=== PATIENT | female | born 1990 | race Caucasian/White ===

== ENCOUNTER 2023-03-11 17:33 | Emergency (ER) | payer OTHER, SELFPAY ==
[2023-03-11 17:39] VITALS: BP 111/82; PULSE 99; RESP 18; TEMP 36.9; O2SAT 98; BMI 32.2
--- NOTE | 2023-03-11 17:57 | ED.GENADULT ---
HPI - General Adult General Time Seen by Provider: 17:57 Date Seen: 03/11/23 Chief complaint: Allergic Reaction Stated complaint: Unknown Allergic Reaction Time Seen by Provider: 03/11/23 17:46 Source: patient and family Mode of arrival: ambulatory Limitations: no limitations History of Present Illness HPI narrative: Chanell is a 32-year-old female with no past medical history or allergies presents emerged department with with a allergic reaction. Patient does run a daycare, around 4:00 a.m. this afternoon she was outside feeding and , which she felt warm and flushed, this started on her face and neck area and radiate to her arms, she became more itchy and developed a rash. She was wearing a sweater. There was some involvement of her underwear area. She medially took some Benadryl just after 4:00 p.m. 25 mg. She denied any difficulty with breathing or swallowing, she did not feel like her throat was swelling up. No history of any allergies, no changes in foods, medications, creams, detergents, she is unsure if she did not get bit by something outside. She denies any pain. She did have some tingling in her cheeks during the episode which has resolved. There has not been any improvement after the Benadryl. Related Data Previous Rx's Medication Instructions Recorded prednisone 20 mg tablet 40 mg PO DAILY 5 days #10 tabs 03/11/23 Allergies Allergy/AdvReac Type Severity Reaction Status Date / Time No Known Drug Allergies Allergy Verified 03/11/23 17:38 Review of Systems Status of ROS: Reports: 10 or more systems reviewed and unremarkable except as noted in History and below [facility] Social History Smoking Status: Never smoker Do you use any of these nicotine containing products: None Second hand tobacco smoke exposure: No How often do you have a drink containing alcohol: 2-4 times a month How many standard drinks containing alcohol do you have on a typical day: 3 or 4 How often do you have six or more drinks on one occasion: Less than monthly AUDIT-C Alcohol total score: 4 Non-prescribed substance use: denies use service: No Exam Narrative: Exam Narrative: General: No obvious distress sitting comfortably, nontoxic in appearance HEENT: Tympanic membranes within normal limits bilaterally oropharynx is clear and moist Pupils equal round reactive to light, extraocular muscles intact Neck: No adenopathy, supple full range of motion Lungs: No stridor, no wheezes, clear to auscultation Heart: Normal sinus rhythm S1-S2 Abdomen: Soft nontender Skin: Generalize find blanching erythemic macular papular rash the upper back, upper chest and upper extremities, involving the anterior neck, frontal scalp cheeks bilaterally and chin area. Also involvement of the upper chest area. Neuro: Alert awake and oriented x3 Const: Vital Signs, click to edit/add: Vital Signs - 24 hr 03/11/23 17:39 03/11/23 19:49 Temperature 98.5 F Pulse Rate [Pulse Oximeter] 99 75 Respiratory Rate 18 18 Blood Pressure [Le ft Upper Arm] 111/82 107/90 H Pulse Oximetry 98 99 Oxygen Delivery Me thod Room Air Room Air Course Course Hospital Course: 6:00 PM: AIDET, vitals are stable at this time, no airway compromise, workup will include IV peripheral, 125 mg IV Solu-Medrol, 20 mg IV Pepcid and 25 mg IV Benadryl, unclear on the etiology at this time. Patient was in agreement. Differential diagnosis include but not limited to seasonal allergies, contact dermatitis, Urticaria, viral exanthem, medication side effects, food allergies, as well as life-threatening anaphylaxis. Reevaluation(s) Reevaluation #1: 7:30 PM: Patient is feeling better after above care given, patient's rash has resolved, plan would be to discharge, unclear on the etiology at this time, will send prescription for prednisone 40 mg once daily over the next 5 days to have at home, if any recurrence, she can take that with 50 mg oral Benadryl every 4-6 hours, Pepcid 20 mg twice daily, she should follow up with primary care provider over the next 7-10 days, return precautions given. Vital Signs Vital signs: Initial Vital Signs Temperature 98.5 F 03/11/23 17:39 Temperature Source Temporal Artery Scan 03/11/23 17:39 Pulse Rate 99 03/11/23 17:39 Pulse Rhythm Regular 03/11/23 17:39 Respiratory Rate 18 03/11/23 17:39 Blood Pressure 111/82 03/11/23 17:39 Blood Pressure Mean 91 03/11/23 17:39 Blood Pressure Position Supine 03/11/23 17:39 Pulse Oximetry 98 04/26/23 17:39 Oxygen Delivery Method Room Air 03/11/23 17:39 Vital Signs Temperature 98.5 F 03/11/23 17:39 Pulse Rate 99 03/11/23 17:39 Respiratory Rate 18 03/11/23 17:39 Blood Pressure 111/82 03/11/23 17:39 Pulse Oximetry 98 03/11/23 17:39 Oxygen Delivery Method Room Air 03/11/23 17:39 Temperature 98.5 F 03/11/23 17:39 Pulse Rate 75 03/11/23 19:49 Respiratory Rate 18 03/11/23 19:49 Blood Pressure 107/90 H 03/11/23 19:49 Pulse Oximetry 99 03/11/23 19:49 Oxygen Delivery Method Room Air 03/11/23 19:49 Discharge Plan Discharge Clinical Impression: Urticaria, Allergic reaction Patient Disposition: Home, Self-Care Condition: Improved Instructions: Urticaria (ED) Additional Instructions: To take Prednisone 40 mg daily with benadryl 50 mg every 6 hours and Pepcid 20 mg twice daily as needed. Activity Level: No Restrictions Prescriptions: New prednisone 20 mg tablet 40 mg PO DAILY 5 Days Qty: 10 0RF Stand Alone Forms: [employer] Info Instructions
[2023-03-11] MEDS: diphenhydrAMINE 50 MG/ML inj 25 MG IVP (18:42)
[2023-03-11] MEDS: FAMOTIDINE 10 MG/ML inj 20 MG IVP (18:42)
[2023-03-11] MEDS: METHYLPREDNISOLONE SOD SUCC 62.5 MG/ML (125) 125 MG IVP (18:43)
[2023-03-11 19:49] VITALS: BP 107/90; PULSE 75; RESP 18; O2SAT 99
== END 2023-03-11 19:51 | disposition home or self-care (01) ==
PROVIDERS: Emergency Provider Student in an Organized Health Care Education/Training Program; PCP Family Medicine
DX: L50.0 Allergic urticaria (principal)
CPT/HCPCS: 96374; 96375; 99283; 99284; J1200; J2930; S0028

== ENCOUNTER 2023-07-28 12:04 | Outpatient (CLI) | payer OTHER, SELFPAY ==
--- NOTE | 2023-07-28 12:15 | CRLHL7_ITS ---
For Patients: As a result of the Century Cures Act, medical imaging exams and procedure reports are released immediately into your electronic medical record. You may view this report before your referring provider. If you have questions, please contact your health care provider. INDICATION: First trimester scan, establish dates. COMPARISON: None. TECHNIQUE: Real-time contreras-scale imaging of the pelvis was performed. FINDINGS: Sonographic imaging demonstrates a single living intrauterine gestation. The embryo demonstrates a regular cardiac rate measuring 178 beats per minute. The embryo`s crown-rump length measurement of 3.0 cm corresponds to a gestational age of 9 weeks 6 days with a sonographic due date of 02/24/2024. There is a normal-appearing yolk sac. There are no gross abnormalities noted within the embryo at this early state of development. The gestational sac has a normal appearance. There is a small perigestational hemorrhage in the fundal region. The amount of fluid within the sac appears appropriate for gestational age. The cervix is closed. An exophytic fibroid may be present at the right side of the lower uterine segment measuring 2.1 x 1.3 x 1.4 cm. The ovaries are of normal size. There are no suspicious fluid collections noted in the cul-de-sac. IMPRESSION: Single living intrauterine with sonographic gestational age 9 weeks 6 days and sonographic due date 02/24/2024. Dictated by Jadon Galaviz MD @ 07/29/2023 1:10:08 PM (Electronically Signed)
== END 2023-07-28 12:05 | disposition home or self-care (01) ==
LOC: US 12:05
PROVIDERS: PCP Family Medicine; Visit Provider Advanced Practice Midwife
DX: Z34.91 Encounter for supervision of normal pregnancy, unspecified, first trimester (principal); Z3A.09 9 weeks gestation of pregnancy
CPT/HCPCS: 76817; 86703; 86803; 86850; 86900; 86901; 87086; 87340

== ENCOUNTER 2023-07-28 13:36 | Outpatient (CLI) | payer OTHER, SELFPAY | END 2023-07-28 13:37 | disposition home or self-care (01) | PROVIDERS: PCP Family Medicine; Visit Provider Advanced Practice Midwife | DX: Z34.91 Encounter for supervision of normal pregnancy, unspecified, first trimester (principal); Z3A.09 9 weeks gestation of pregnancy | CPT/HCPCS: 86592; 86703; 86762; 86787; 86803; 86850; 86900; 86901; 87086; 87340 ==

== ENCOUNTER 2023-08-18 16:33 | Outpatient (CLI) | payer OTHER, SELFPAY | END 2023-08-18 16:34 | disposition home or self-care (01) | LOC: NFLDREF 17:06 | PROVIDERS: PCP Family Medicine; Visit Provider Advanced Practice Midwife | DX: Z34.91 Encounter for supervision of normal pregnancy, unspecified, first trimester (principal); Z3A.12 12 weeks gestation of pregnancy | CPT/HCPCS: 87491; 87591 ==

== ENCOUNTER 2023-09-03 15:06 | Outpatient (CLI) | payer OTHER, SELFPAY ==
[2023-09-03 22:13] LABS: SARS PCR* Negative SARS-CoV-2 (Negative); Strep A DNA Probe* NOT DETECTED (Not Detectd)
== END 2023-09-03 15:07 | disposition home or self-care (01) ==
PROVIDERS: PCP Family Medicine; Visit Provider Nurse Practitioner Family
DX: J11.1 Influenza due to unidentified influenza virus with other respiratory manifestations (principal)
CPT/HCPCS: 87635; 87651

== ENCOUNTER 2023-10-20 14:02 | Outpatient (CLI) | payer OTHER, SELFPAY ==
--- NOTE | 2023-10-20 14:00 | CRLHL7_ITS ---
For Patients: As a result of the Century Cures Act, medical imaging exams and procedure reports are released immediately into your electronic medical record. You may view this report before your referring provider. If you have questions, please contact your health care provider. INDICATION: Evaluate anatomy. COMPARISON: 07/28/2023 TECHNIQUE: Real time contreras scale imaging of the fetus was performed as well as color Doppler analysis of the umbilical vessels. FINDINGS: Sonographic imaging demonstrates a single living intrauterine gestation. Fetus demonstrates a regular cardiac rate of 154 beats per minute. Fetus has a vertex position. The placenta lies posteriorly without evidence of placenta previa. The placental edge lies 6 cm from the internal cervical os. Amniotic fluid volume appears normal. Single deepest vertical pocket: 3.7 cm. The composite ultrasound gestational age is calculated at 21 weeks 4 days with an estimated sonographic due date of 02/26/2024. The estimated weight is 416 grams which lies at the 20th %. The following biometric measurements were obtained: Biparietal diameter: 5.1 cm/21 weeks 3 days 28th% Head circumference: 19.2 cm/21 weeks 3 days 22nd% Abdominal circumference: 16.3 cm/21 weeks 3 days 28th% Femur length: 3.6 cm/21 weeks 2 days 20th% The HC/AC ratio measures: 1.18 range (1.06-1.24) On anatomic survey, there is a normal appearance of the cerebral ventricles, cavum septi pellucidi, cisterna magna and cerebellum. The nose, lips, and facial profile appear normal. The cervical, thoracic and lumbar spine are well visualized and appear normal. There is a normal four-chamber heart view and the left and right ventricular outflow tracts appear normal. The diaphragm and stomach appear normal. The kidneys and bladder also appear normal. There is a normal three-vessel cord and cord insertion site. The four extremities appear normal. IMPRESSION: Normal OB ultrasound exam with concordance of clinical and sonographic dating. No intrinsic abnormalities noted on anatomic survey. Dictated by Jadon Galaviz MD @ 10/22/2023 10:31:30 AM (Electronically Signed)
== END 2023-10-20 14:03 | disposition home or self-care (01) ==
LOC: US 14:02
PROVIDERS: PCP Family Medicine; Visit Provider Advanced Practice Midwife
DX: Z34.92 Encounter for supervision of normal pregnancy, unspecified, second trimester (principal); Z3A.21 21 weeks gestation of pregnancy
CPT/HCPCS: 76805

== ENCOUNTER 2023-12-01 16:01 | Outpatient (CLI) | payer BC, SELFPAY | END 2023-12-01 16:02 | disposition home or self-care (01) | LOC: NFLDREF 12-06 05:31 | PROVIDERS: PCP Family Medicine; Referring Provider Family Medicine; Visit Provider Advanced Practice Midwife | DX: Z34.83 Encounter for supervision of other normal pregnancy, third trimester (principal) | CPT/HCPCS: 86592 ==

== ENCOUNTER 2024-01-26 17:18 | Outpatient (CLI) | payer BC, SELFPAY | END 2024-01-26 17:19 | disposition home or self-care (01) | LOC: NFLDREF 01-29 07:52 | PROVIDERS: PCP Family Medicine; Referring Provider Family Medicine; Visit Provider Advanced Practice Midwife | DX: Z34.83 Encounter for supervision of other normal pregnancy, third trimester (principal) | CPT/HCPCS: 87081; 87653 ==

== ENCOUNTER 2024-02-25 09:32 | Inpatient (IN) | payer BC, SELFPAY ==
[2024-02-25] VITALS (46 sets, daily range): BP systolic 90–148; BP diastolic 50–94; PULSE 69–119; RESP 16–18; TEMP 36.8–37.1; O2SAT 89–100; BMI 34.4
[2024-02-25] MEDS: miSOPROStoL 25 MCG/0.25 TABLET VAGINAL ×2 (11:10→14:38)
--- NOTE | 2024-02-25 11:23 | P.LDBA_ITS ---
Subjective History of Present Illness Date Seen: 02/25/24 Narrative: Patient is being admitted to Labor and Delivery for an elective IOL. She is a 33 year old at 40.1 weeks gestation. Her full history and physical was dictated by Neto Lainez CNM on 02/02/24. Please see this for details. She has been feeling more cramping since her visit on Thursday. A cervical exam was performed and she was found to be 1.5/60/-2 which is slightly changed from her previous exam. We discussed induction options including Cytotec, Pitocin, and AROM. Risks and benefits were previously discussed and briefly reviewed today. She would like to proceed with vaginal Cytotec. Questions answered. she is appreciating good movement. Specific Issues/Plans -Satish It's a GIRL!! H&P done by Neto Lainez CNM and 02/02/24 Elective IOL 02/25 1. Anemia outside of . Takes PO iron. Hgb 12.4 at NOB. 2. Hx frequent UTIs before . Uncommon since her last . 3. HPV+ in 2020, negative 12/04/21. Needs pap-wants 4. Social smoker. None during . Taking VitC. 5. Covid positive on 11/15. recommended baby ASA growth US at 32 weeks: declined COVID: Declines Flu: declines TDAP: 12/15/23 32wk Mental Health: 12/29/2023 OB - Problem Based A/P Additional Plan (1) Encounter for induction of labor: Status: Acute Plan ASSESSMENT:? at 40.1 weeks gestation? GBS negative? Uncomplicated ? Elective IOL? ?? PLAN:? 1. Reviewed risks and benefits of IOL with pitocin vs cytotec vs AROM. Pt prefers cytotec. Pitocin or AROM to follow if needed.? 2. Candidate for analgesia of choice. Planning unmedicated but may consider epidural.? 3. Anticipate ? 4. IV not needed at this time. Consider if patient condition changes 5. Monitoring per policy for cytotec induction. ? Delivery/Labor/Induction Plan Plan: induction Induction method: per misoprostol protocol OB Result Labs Blood Type: O (+) positive GBS Status: negative OB Exam Physical Exam Vital signs: Temp Pulse Resp BP Pulse Ox 98.3 F 112 H 16 111/67 96 02/25/24 09:43 02/25/24 09:43 02/25/24 09:43 02/25/24 09:43 02/25/24 09:43 Narrative: Psychiatric:? Alert and oriented x3? HEENT:? Normocephalic, atraumatic? Neck:? Supple without adenopathy or thyromegaly? Lungs:? Clear to auscultation bilaterally? Heart:? Regular rate and rhythm, no murmur, rub or gallop? Abdomen:? Soft, nontender, and gravid? Extremities:? No edema or erythema? Detailed Labor and Delivery Exam Patient Gravid: Yes Dilation (cm): 1 (1.5) Effacement (%): 60 Cervix position: mid Consistency: medium Contraction Frequency: occasional Tachysystole: No Fetus (Single) Station: -2 Amniotic Membrane Status: intact Heart Rate Baseline: 140 Monitor Accelerations: Present Monitor Decelerations: None Front Maker Lockstitch Variability: Moderate (6-25)
[2024-02-25 12:20] LABS: Basophils Absolute Auto 0.01 K/uL (0.00-0.30); Basophils Percent Auto 0.1 % (0.0-3.0); Eosinophils Percent Auto 1.4 % (0.0-7.0); Hematocrit 38.8 % (33.0-51.0); Hemoglobin* 12.5 gm/dL (12.0-16.0); Immature Granulocytes Abs Auto 0.08 K/uL (0.00-0.30); Immature Granulocytes Pct Auto 1.1 %; Lymphocytes Absolute Auto 2.45 K/uL (0.90-2.90); Lymphocytes Percent Auto 33.5 % (20-44); Mean Corpuscular HGB Conc 32 gm/dL (32-36); Mean Corpuscular Hemoglobin 28 pg (26-34); Mean Corpuscular Volume 88 fL (80-100); Monocytes Percent Auto 6.8 % (0.0-11.0); Neutrophils Absolute Auto 4.18 K/uL (1.7-7.0); Neutrophils Percent Auto 57.1 % (42.0-72.0); Platelet Count* 219 K/uL (140-440); RDW Coefficient of Variation % 14.5 % (11.5-15.5); Red Blood Count 4.41 m/uL (4.00-5.20); White Blood Count* 7.32 K/uL (4.50-11.00)
[2024-02-25 12:24] LABS: Slide Review Reflex No
--- NOTE | 2024-02-25 17:13 | PM.OBPNL ---
Subjective Time Seen by Provider: 19:45 Date Seen: 02/25/24 Narrative: Chanell has continued to contract. They have slowly increased in intensity. Her 3rd dose of Cytotec was held due to frequency of contractions. At the time of the exam she had made a small amount of change and was found to be 2cm/70%/-2. We discussed adding Pitocin vs AROM. After reviewing risks and benefits of each she decided to proceed with AROM and would like to consider Pitocin if not change in contraction intensity. Moderate amount of clear fluid with rupture. Category 1 tracing and she has been ambulating and changing positions. Objective Vital Signs: Last Vital Signs Temp 98.3 F 02/25/24 14:44 Pulse 90 02/25/24 14:43 Resp 16 02/25/24 14:44 BP 124/56 L 02/25/24 14:43 Pulse Ox 97 02/25/24 15:56 Pelvic Exam Dilation (cm): 2 Effacement (%): 70 Station: -2 Contractions Monitor mode: External Contraction Frequency: 2-4 Contraction pattern: Regular Contraction intensity: Mild Assessment Assessment: induction ongoing Station: -2 Amniotic Membrane Status: AROM Status: Category l Heart Rate Baseline: 140 Shelter Variability: Moderate (6-25) Monitor Accelerations: Present Monitor Decelerations: None Plan Plan: ASSESSMENT:?? 33 at 40.1 weeks gestation?? complicated by:?Covid in , history of anemia but normal Hgb in Labor type: induction, Cytotec x2, AROM?? Category 2 tracing??? Labor complicated by: none?? GBS negative? PLAN:?? 1. Routine intrapartum cares as ordered. Continue with induction. AROM after Cytotec x2. Consider pitocin titration if contractions do not continue to increase in intensity.?? 2. Monitoring per policy, continuous with epidural?? 3. Candidate for analgesia of choice. Considering epidural.? 4. RN to assist patient with repositioning to promote physiologic labor and .?? 5. Anticipate NVD.?
[2024-02-25] MEDS: FAMOTIDINE 20 MG TABLET PO (18:33)
[2024-02-25] MEDS: LACTATED RINGERS 1000 ML 1,000 ML 1200 ML IV ×2 (21:01→21:37)
[2024-02-25] MEDS: LIDOCAINE 2% (PF) 5 ML VIAL EPIDURAL (21:32)
[2024-02-25] MEDS: ROPIVACAINE 0.2% 100 ml 100 ML 10 MG EPIDURAL (21:40)
--- NOTE | 2024-02-25 21:59 | P.ANBPRC_ITS ---
[facility] Medical History History of vaginal delivery History of vitamin D deficiency ?Z86.39 - Personal history of other endocrine, nutritional and metabolic disease (ICD-10) History of anemia ?Z86.2 - Personal history of diseases of the blood and blood-forming organs and certain disorders involving the immune mechanism (ICD-10) Surgical History History of third molar tooth extraction ?K08.409 - Partial loss of teeth, unspecified cause, unspecified class (ICD- 10) History of removal of skin mole (2020) ?Z98.890 - Other specified postprocedural states (ICD-10) ?Z87.2 - Personal history of diseases of the skin and subcutaneous tissue (ICD-10) Family History Paternal Grandmother Breast cancer Maternal Grandmother Breast cancer, Onset Age: 40 Father Arteriovenous malformation (AVM) Mother Enlarged heart, Onset Age: 56 Social History Narrative: SOCIAL 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 [employer] Lives with: and child Pets: none Abuse: Denies past partner present Special Diet: Denies Ok with a blood transfusion: yes Culture or muslim beliefs: denies RISK FACTORS Exercise Times/wk: walk & hiking Depression/Anxiety: denies MILAGRO: 0 PHQ 9: 1 Seat Belt Use: Routinely Smoking: Denies past/present rare social use only Alcohol/day: Denies while Caffeine: 1/day Drug Use: Denies past/present Chicken Pox: Yes as a child MRSA: Denies What is your current living situation?: I presently have a place to live Problems where you live: no known problems In the past 12 months, utilities in danger of being shut off: no In past 12 months, lack of transportation kept you from medical appts, meetings, work, or getting things needed for daily living: no In the past 12 mos, have been you worried that your food would run out before you had money to buy more?: never true In the past 12 mos, the food you bought just didn't last and you didn't have money to buy more?: never true Smoking Status: Former smoker Do you use any of these nicotine containing products: None Second hand tobacco smoke exposure: No How often do you have a drink containing alcohol: 2-4 times a month How many standard drinks containing alcohol do you have on a typical day: 3 or 4 How often do you have six or more drinks on one occasion: Less than monthly AUDIT-C Alcohol total score: 4 Non-prescribed substance use: denies use How often does anyone, including family, friends and others, physically hurt you : never How often does anyone, including family, friends and others, insult or talk down to you: never How often does anyone, including family, friends and others, threaten you with harm: never How often does anyone, including family, friends and others, scream or curse at you: never Little interest or pleasure in doing things: not at all Feeling down, depressed, or hopeless: several days service: No Meds Home Medications and Allergies Home Medications Medication Instructions Recorded Confirmed Type cholecalciferol (vitamin D3) 25 25 mcg PO QDAY 07/28/23 02/25/24 History mcg (1,000 unit) capsule ferrous gluconate 225 mg (27 mg 225 mg PO QDAY 07/28/23 02/25/24 History iron) tablet (Fergon) vits no.126-ferrous fum 1 tab PO DAILY 07/28/23 02/25/24 History 28 mg iron-folic acid 800 mcg tablet (Classic ) ascorbate calcium (vitamin C) 500 500 mg PO QDAY 08/18/23 02/25/24 History mg tablet acetaminophen 500 mg tablet 1,000 mg PO Q6H PRN 10/20/23 02/25/24 History (Tylenol Extra Strength) aspirin 81 mg tablet,delayed 81 mg PO QDAY 12/29/23 02/25/24 History release doxylamine succinate 25 mg tablet 25 mg PO QHS PRN 02/23/24 02/25/24 History (Unisom (doxylamine)) famotidine 20 mg tablet (Pepcid AC) 20 mg PO PRN 02/25/24 02/25/24 History Allergies Allergy/AdvReac Type Severity Reaction Status Date / Time No Known Drug Allergies Allergy Verified 02/25/24 10:03 Results Labs Labs: Laboratory Results - last 24 hr 02/25/24 12:12 WBC 7.32 RBC 4.41 Hgb 12.5 Hct 38.8 MCV 88 MCH 28 MCHC 32 RDW Coeff of Kavitha 14.5 Plt Count 219 Neut % (Auto) 57.1 Lymph % (Auto) 33.5 [place] % (Auto) 6.8 Eos % (Auto) 1.4 Baso % (Auto) 0.1 Neut # (Auto) 4.18 Lymph # (Auto) 2.45 [place] # (Auto) 0.50 Eos # (Auto) 0.10 Baso # (Auto) 0.01 Abs Immat Gran (auto) 0.08 Imm/Tot Granulo (auto) 1.1 Blood Type O Positive Antibody Screen NEGATIVE Vital Signs Vital Signs: Last Vital Signs Temp 98.6 F 02/25/24 19:58 Pulse 93 02/25/24 21:58 Resp 18 02/25/24 19:58 BP 127/70 02/25/24 21:58 Pulse Ox 99 02/25/24 21:53 Weight: 82.871 kg Height: 154.94 cm Anesthesia Procedures Epidural Insertion Patient Location: OB Start Time: 21:15 Stop Time: 21:45 Start Date: 02/25/24 Stop Date: 02/25/24 Reason for Block: procedure for pain Patient Position: sitting Performed By: Seferino Craig Preanesthetic Checklist: IV checked, risks and benefits discussed, monitors and equipment checked, pre-op evaluation, timeout performed and anesthesia consent Prep: chlorhexidine gluconate Monitoring: blood pressure monitoring, continuous pulse oximetry and heart rate Approach: midline Vertebral Space: lumbar (1-5) Epidural Technique: CHARO saline Needle Type: Tuohy needle Injection Technique: continuous catheter Needle gauge: 17 Needle Length (cm): 10 cm Needle Insertion Depth (cm): 8 Catheter Gauge: 19 Catheter Type: multi-orifice Catheter at skin depth (cm): 14 Test Dose Result: negative and lidocaine 1.5% with epinephrine 1 to 200,000
[2024-02-25] MEDS: OXYTOCIN 30 unit/500 ML in NS 30 UNIT/500 ML BAG IVPB (22:40)
--- NOTE | 2024-02-25 23:08 | P.OBPN_ITS ---
Subjective Time Seen by Provider: 23:00 Date Seen: 02/25/24 Narrative: Chanell's contractions increase in intensity after AROM and she requested an epidural shortly after. It was placed and she is comfortable. After placement she continued to contract ever 2-3 minutes for the first couple of hours. Around 2200 her contractions stared to space out to every 3-6 minutes. On evaluation she was found to make some cervical change and was found to be 3.5/75%/-2. She was given the option of continue to labor without intervention or add Pitocin augmentation. She would like to proceed with Pitocin augmentation. Will continue to titrate as needed and according to the policy. Objective Vital Signs: Last Vital Signs Temp 98.8 F 02/25/24 21:49 Pulse 88 02/25/24 23:00 Resp 18 02/25/24 21:49 BP 110/58 L 02/25/24 23:00 Pulse Ox 99 02/25/24 21:53 Pelvic Exam Dilation (cm): 3.5 Effacement (%): 75 Station: -2 Contractions Monitor mode: External Contraction Frequency: 3-6 Contraction pattern: Regular Contraction intensity: Moderate Assessment Assessment: induction ongoing Station: -2 Amniotic Membrane Status: AROM Status: Category l Heart Rate Baseline: 130 Group Home Variability: Moderate (6-25) Monitor Accelerations: Present Monitor Decelerations: None Plan Plan: ASSESSMENT:?? 33 at 40.1 weeks gestation?? complicated by:?Covid in , history of anemia but normal Hgb in Labor type: induction, Cytotec x2, AROM, Pitocin titration? Category 1 tracing??? Labor complicated by: none?? GBS negative? PLAN:?? 1. Routine intrapartum cares as ordered. Continue with induction. Pitocin titration. 2. Monitoring per policy, continuous with epidural?? 3. Epidural in place with adequate coverage.? 4. RN to assist patient with repositioning to promote physiologic labor and .?? 5. Anticipate NVD.?
[2024-02-26] VITALS (19 sets, daily range): BP systolic 90–189; BP diastolic 50–131; PULSE 49–116; RESP 15–18; TEMP 36.3–37.1; O2SAT 82–96
--- NOTE | 2024-02-26 02:32 | W.PM.OBVAGDE ---
OB Procedure Vag Delivery Mother Details Mother Details: The patient is a 33 year-old, 2, Para 1, admitted on 02/25/24 at 40.1 Days gestation. : 2 Para: 2 Weeks Gestation: 40.2 Admission Date: 02/25/24 Additional Details Amniotic Membrane Status: AROM Amniotic Membrane Rupture Date: 02/25/24 Amniotic Membrane Rupture Time: 19:37 Amniotic Membrane Fluid Description: Clear Analgesia/Anesthesia Type: Epidural Waterbirth: No Pitcoin: Yes Intrapartal Events: Labor Induction Induction Method: per misoprostol protocol and AROM Delivery augmentation: pitocin Labor Onset: 21:40 Complete: 01:24 Pushin:40 Heart: heart tones during second stage were category 2. Baseline 125, + accels, a few variable decels with pushing. Delivery Details Delivery Date: 02/26/24 Delivery Time: 01:52 Route of delivery: Infant Gender: Female Infant Viability: Alive; Heart Rate Present Position at Delivery: OA Delivery Details: Patient was admitted for an elective IOL and progressed with 2 doses of Cytotec, AROM and Pitocin titration up to 4. AROM noted at 1937 with clear fluid. Patient was complete at 0124 and pushing at 0140. of a viable female at 0152 in the bed. Vertex delivered OA. Nuchal cord x1 easily reduced at the perineum. No shoulder. Shoulders did not rotate after deliver of the head and were delivered direct OA. The body was slow to come after delivery of the shoulder, likely due to lack of contraction force and maternal force. Body delivered without incident. Infant passed to mothers abdomen with a vigorous cry. Cord was clamped and cut at > 5 minutes. APGARS were 8 at one minute and 9 at five minutes respectively. Mouth was bulb suctioned. Intact placenta with a 3 vessel cord delivered spontaneously at 0200. Fundus firm. 2nd degree identified and repaired in typical fashion. QBL 175 cc. Mother and baby stable; mother plans to breastfeed. Infant weight pending.? 1 Minute Interval Total Score: 8 5 Minute Interval Total Score: 9 Additional Details Shoulder Dystocia: No Placenta Delivery Time: 02:00 Placental Delivery Description: Spontaneous Delivery repair: Vicryl Procedure Done: Global Blood Loss: 175 Laceration: Perineal - 2nd Degree Episiotomy Description: None Blood Loss Measurement Type: QBL Bakri Used: No Sponge/Need Count Correct: Yes Cord Vessel Description: 3 Vessels, Nuchal Cord and Reduced Event Summary Status: Mother and infant were stable after delivery. Disposition: floor
[2024-02-26] MEDS: IBUPROFEN 600 MG TABLET PO ×3 (03:46→17:07)
[2024-02-26] MEDS: ACETAMINOPHEN 500 MG TABLET 1000 MG PO ×3 (06:43→21:16)
[2024-02-26] MEDS: DOCUSATE SODIUM 100 MG CAPSULE PO (08:48)
--- NOTE | 2024-02-26 11:26 | PM.ANPOST ---
Post Anesthesia Note Post Anesthesia Note Patient seen: Inpatient Respiratory Status: adequate Cardiovascular Status: adequate Mental Status: baseline Pain: adequate Temp: baseline Anesthetic awareness: N/A Complications: none Follow care: none
[2024-02-26 18:09] LABS: Rapid Plasma Reagin (RPR) Non Reactive (Non Reactive)
[2024-02-27 00:19] VITALS: BP 104/70; PULSE 67; RESP 18; TEMP 37.2; O2SAT 95
[2024-02-27] MEDS: IBUPROFEN 600 MG TABLET PO ×2 (00:44→07:36)
[2024-02-27] MEDS: DOCUSATE SODIUM 100 MG CAPSULE PO (07:36)
[2024-02-27 07:40] VITALS: BP 107/73; PULSE 71; RESP 18; TEMP 37; O2SAT 98
--- NOTE | 2024-02-27 10:34 | P.DS_ITS ---
DS: Providers Provider Date Seen: 02/27/24 Date of admission: 02/25/24 09:32 Primary care physician: Mitra Mcintyre MD Admitting Clinician: Irasema Orellana CNM Attending Physician on discharge: Estefany Lainez CNM Date of Discharge: 02/27/24 DS: Diagnosis Discharge Diagnosis (1) care and examination immediately after delivery: Status: Acute (2) Lactating mother: Status: Acute Exam Narrative: Exam Narrative: VSS, afebrile GENERAL APPEARANCE: ?normal affect, alert, no distress MOOD: ?appropriate HEENT: normocephalic, neck supple, full ROM CHEST: ?Symmetrical chest wall movement. ?Normal respiratory effort. ?Clear to auscultation HEART: ?regular rate and rhythm ABDOMEN: ?soft, non-tender. Uterine fundus is firm, at Umbilicus, Midline and is appropriate for the stage of recovery. ?Bowel sounds present. PERINEUM: ?mild edema of the perineum, there is a 2nd degree laceration that is healing well. EXTREMITIES: ?normal and no edema Const: Vital Signs, click to edit/add: Vital Signs - 24 hr 02/26/24 12:09 02/26/24 17:10 02/26/24 21:00 Temperature 98.5 F 97.3 F L 97.9 F Pulse Rate [Right Pulse Oximeter] 69 67 67 Respiratory Rate 18 18 15 Blood Pressure [Ri ght Arm] 118/75 121/81 134/85 Pulse Oximetry 96 95 96 Oxygen Delivery Me thod Room Air Room Air Room Air 02/27/24 00:19 02/27/24 07:40 Temperature 98.9 F 98.6 F Pulse Rate [Right Pulse Oximeter] 67 71 Respiratory Rate 18 18 Blood Pressure [Ri ght Arm] 104/70 107/73 Pulse Oximetry 95 98 Oxygen Delivery Me thod Room Air Room Air Documenting provider has reviewed patient's vital signs: yes OB - DS: Summary Hospital Course Hospital Course: Chanell is a 33 y.o. who was admitted to [facility] for induction. ?She had an uncomplicated NVD.?The patient feels well. ?The pain is well controlled with current medications. ?She has no new complaints. ?She is breast feeding and reports things are going well.? the patient has done well.? Vitals have been stable.? She has remained afebrile.? Has a good appetite, is tolerating a general diet. ?She is voiding without difficulty.? She is passing gas and has not had a bowel movement.? She is ambulating and denies any dizziness.? Has Small amount of rubra lochia. ?She is planning Slynd for prevention. Peripartum Data Infant delivery method: Vaginal Laceration description: Perineal - 2nd Degree complications: none Infant Gender: Female Infant Discharge Plan: Home Status at Discharge Functional status at discharge: independent ambulation Overall status at discharge: patient is progressing back to baseline Time Spent with Patient Time attestation: Total time spent providing and/or coordinating discharge services: Time spent: Less than 30 minutes Discharge Plan Discharge Disposition: Home, Self-Care Date of Admission: 02/25/24 09:32 Attending Provider on Discharge: Estefany Lainez Primary Care Provider: Mitra Mcintyre Condition: Stable Anticipated Discharge Date/Time: 02/27/24 12:00 Discharge Medications: New docusate sodium 100 mg Capsule 100 mg PO DAILY Qty: 90 3RF ibuprofen 600 mg Tablet 600 mg PO Q6H PRNQty: 60 0RF Continued Classic 28 mg iron- 800 mcg tablet 1 tab PO DAILY Fergon 225 mg (27 mg iron) tablet 225 mg PO QDAY cholecalciferol (vitamin D3) 25 mcg (1,000 unit) capsule 25 mcg PO QDAY Unisom (doxylamine) 25 mg tablet 25 mg PO QHS PRN ascorbate calcium (vitamin C) 500 mg tablet 500 mg PO QDAY acetaminophen [Tylenol Extra Strength] 500 mg tablet 1,000 mg PO Q6H PRN famotidine [Pepcid AC] 20 mg tablet 20 mg PO PRN Discontinued aspirin 81 mg tablet,delayed release (DR/EC) 81 mg PO QDAY Discharge Orders: Discharge Order (Routine); Ordered 02/27/24 Ordered By: Estefany Lainez Patient Education: OB Over the Counter Medication Information, OB Vaginal/Breast Feeding Additional Instructions: Discharge instructions were reviewed with the patient including signs and symptoms of infection and home going medications Nothing vaginally for 6 weeks: no tampons or intercourse Do not drive while taking narcotic pain medication(s) Off Work or School for 6 weeks 2-week visit: discuss feeding concerns, review control options and screen for anxiety/depression. 6-week visit for an annual exam. consultation services are available to all mothers and babies for the first year after delivery.? To make an appointment, please call [phone]. Activity Level: Activity as Tolerated Follow Up Appointments: Mitra Mcintyre MD [Primary Care Provider] - [facility] [Provider Group] Forms: Clear Standards Info Instructions
== END 2024-02-27 12:02 | disposition home or self-care (01) | DRG 560 ==
PROVIDERS: Admitting Provider Advanced Practice Midwife; PCP Family Medicine; Visit Provider Advanced Practice Midwife
DX: O48.0 Post-term pregnancy (principal); O70.1 Second degree perineal laceration during delivery; Z3A.40 40 weeks gestation of pregnancy; Z37.0 Single live birth; O77.0 Labor and delivery complicated by meconium in amniotic fluid
CPT/HCPCS: 01967; 36415; 59200; 85025; 86592; 86850; 86900; 86901; A9270; J2371; J2795; J7120

== ENCOUNTER 2024-11-25 13:26 | Outpatient (CLI) | payer BC, SELFPAY ==
[2024-12-02 08:32] LABS: HPV Source Cervical; HPV, High Risk by TMA Not Detected
== END 2024-11-25 13:27 | disposition home or self-care (01) ==
PROVIDERS: PCP Family Medicine; Visit Provider Obstetrics & Gynecology
DX: Z12.4 Encounter for screening for malignant neoplasm of cervix (principal)
CPT/HCPCS: 87624; 87625; 88141; 88142

== ENCOUNTER 2024-12-05 08:00 | Outpatient (CLI) | payer BC, SELFPAY | END 2024-12-05 08:01 | disposition home or self-care (01) | LOC: NFLDREF 12-13 06:54 | PROVIDERS: PCP Family Medicine; Referring Provider Family Medicine; Visit Provider Obstetrics & Gynecology | DX: E78.5 Hyperlipidemia, unspecified (principal) | CPT/HCPCS: 80061 ==

== ENCOUNTER 2025-06-02 13:43 | Outpatient (CLI) | payer BC, SELFPAY | END 2025-06-02 13:44 | disposition home or self-care (01) | LOC: RAD 13:44 | PROVIDERS: PCP Family Medicine; Visit Provider Nurse Practitioner Family | DX: R01.1 Cardiac murmur, unspecified (principal); Z82.41 Family history of sudden cardiac death | CPT/HCPCS: 93306 ==